=== PATIENT | male | born 1980 ===

== ENCOUNTER 2024-01-17 05:11 | Day surgery (SDC) | payer OTHER ==
[~2024-01-17] VITALS: Ht 165.1 cm; Wt 72.6 kg
[~2024-01-17 05:11] MED LIST: COZAAR25 MG PO
[2024-01-17] MEDS ORDERED: METRONIDAZOLE/SODIUM CHLORIDE 500 MG/100 ML PIGGYBACK IV ONE ×2 (06:25→07:45)
[2024-01-17] MEDS ORDERED: LIDOCAINE HCL/EPINEPHRINE 10MG/ML 1% 50ML IJ ONE ×2 (07:19→07:45)
[2024-01-17] MEDS ORDERED: DIBUCAINE 30 GM TUBE ONE (07:19)
[2024-01-17] MEDS ORDERED: POVIDONE-IODINE 118 ML BOTT TOP ONE ×2 (07:20→07:45)
[2024-01-17] MEDS ORDERED: HEMOSTATIC MATRIX 1 KIT KIT TOP ONE ×2 (07:20→07:45)
[2024-01-17] MEDS ORDERED: BUPIVACAINE HCL 250MG/50ML VIAL ONE (07:20)
[2024-01-17] MEDS ORDERED: BUPIVACAINE HCL 250MG/50ML VIAL IJ ONE (07:45)
[2024-01-17] MEDS ORDERED: levoFLOXacin IN DEXTROSE 5 % 5 MG/ML PIGGYBAG IV ONE (07:45)
[2024-01-17] MEDS ORDERED: DIBUCAINE 30 GM TUBE RECTAL ONE (07:45)
[2024-01-17] MEDS ORDERED: TAMSULOSIN HCL 0.4 MG CAP PO ONE ×2 (09:30→11:56)
[2024-01-17] MEDS ORDERED: OXYC1TAB9 PO (09:35)
== END 2024-01-17 13:10 | disposition home or self-care (01) ==
LOC: CIR.AMB 05:11
PROVIDERS: ATTEND Surgery
DX: K64.2 Third degree hemorrhoids (principal); K64.4 Residual hemorrhoidal skin tags; K64.8 Other hemorrhoids; K62.5 Hemorrhage of anus and rectum; Z88.0 Allergy status to penicillin